=== PATIENT | female | born 1960 | race Caucasian/White ===

== ENCOUNTER → 2017-06-22 | Outpatient (CLI) | payer BC ==
[~2017-06-22] VITALS: Ht 160 cm; Wt 74.8 kg
[2017-06-22 10:09] VITALS: BP 118/70
[2017-06-22 10:30] VITALS: BP 128/71
--- NOTE | 2017-06-22 10:50 | Diagnostic Imaging Report ---
EXAMINATION: Dedicated thyroid ultrasound performed with ultrasound guidance provided for FNA performed by Dr. Garcia. Indication: Thyroid nodule FINDINGS: Ultrasound images demonstrate a right thyroid nodule. IMPRESSION: Ultrasound guidance provided for right thyroid nodule FNA. Dictated by: Dictated on workstation # [id number]
== END ==
LOC: RAD 10:10
PROVIDERS: ATTEND Otolaryngology Otolaryngology/Facial Plastic Surgery
DX: E04.1 Nontoxic single thyroid nodule (principal)
CPT/HCPCS: 76942